=== PATIENT | female | born 1985 | race Caucasian/White ===

== ENCOUNTER 2022-03-17 15:35 | Outpatient (CLI) | payer OTHER | END 2022-03-17 15:36 | disposition home or self-care (01) | LOC: BURRAD 15:35 | PROVIDERS: ATTEND Family Medicine | DX: M25.562 Pain in left knee (principal) ==

== ENCOUNTER 2022-05-20 17:42 | Emergency (ER) | payer OTHER ==
[2022-05-20] MEDS ORDERED: predniSONE 20 MG TAB ONE (18:01)
== END 2022-05-20 18:04 | disposition home or self-care (01) ==
LOC: BURERS 17:42
DX: J30.9 Allergic rhinitis, unspecified (principal); F17.290 Nicotine dependence, other tobacco product, uncomplicated; Z79.899 Other long term (current) drug therapy
CPT/HCPCS: 99282; J7512

== ENCOUNTER 2022-06-06 14:14 | Emergency (ER) | payer OTHER ==
[2022-06-06] MEDS ORDERED: ALPRAZolam 0.5 MG TAB ONE (15:02)
== END 2022-06-06 15:20 | disposition home or self-care (01) ==
LOC: BURERS 14:14
DX: F41.9 Anxiety disorder, unspecified (principal); I10 Essential (primary) hypertension; F17.290 Nicotine dependence, other tobacco product, uncomplicated; F20.9 Schizophrenia, unspecified; F43.10 Post-traumatic stress disorder, unspecified; F32.A Depression, unspecified; Z79.899 Other long term (current) drug therapy
CPT/HCPCS: 99283

== ENCOUNTER 2022-07-17 19:37 | Emergency (ER) | payer OTHER | END 2022-07-17 20:02 | disposition home or self-care (01) | LOC: BURERS 19:37 | DX: S83.92XA Sprain of unspecified site of left knee, initial encounter (principal); I10 Essential (primary) hypertension; F17.210 Nicotine dependence, cigarettes, uncomplicated; X58.XXXA Exposure to other specified factors, initial encounter | CPT/HCPCS: 99283 ==